=== PATIENT | female | born 1970 | race Caucasian/White ===

== ENCOUNTER 2018-01-13 07:13 | Day surgery (SDC) | payer OTHER ==
--- NOTE | 2018-01-08 15:32 | HP ---
HISTORY OF PRESENT ILLNESS: Patient is a 47-year-old female with an umbilical hernia. This causes h er pain in the umbilical area. She was referred to [facility] for a CAT scan as efforts to obtain this at Hospital were just too expensive. Her CAT scan of abdomen and pelvis was unremarkable except for a fat containing umbilical hernia. Plan is for robotic mesh repair of umbilical hernia a s an outpatient. MEDICATIONS: 1. Barbra. 2. Levothyroxine. 3. Wellbutrin. PAST MEDICAL HISTORY: Ovarian cystic . PAST SURGICAL HISTORY: LEEP procedure in 2005. FAMILY HISTORY: Father , diagnosed with hypertension, heart disease, stroke. Mother alive, diagnosed with hypertension and cancer. TOBACCO: None. ALCOHOL: None. REVIEW OF SYSTEMS: Ten point noncontributory. PHYSICAL EXAMINATION: VITAL SIGNS: 167 pounds, 134/87, 71 heart rate, 97.3 degrees. HEENT: Unremarkable. LUNGS: Clear to auscultation. CARDIAC: Regular rate and rhythm without murmur or gallop. ABDOMEN: Soft, nontender. Umbilical hernia, tender on palpation about 1.5 to 2 cm defect. EXTREMITIES: Unremarkable. ASSESSMENT AND PLAN: Reducible umbilical hernia that is painful. Recommend robotic repair using mes h outpatient. She understands risks and benefits and consents.
[2018-01-12 12:39] VITALS: BMI 26.6
[2018-01-13 07:53] LABS: #Basophils 0.1 thou/uL (0.0-0.2); #Eosinphils 0.1 thou/uL (0.0-0.7); #Lymphocytes 1.8 thou/uL (1.20-3.40); #Monocytes 0.5 thou/uL (0.11-0.59); #Neutrophils 3.6 thou/uL (1.40-6.50); %Basophils 0.9 % (0.0-1.0); %Eosinophils 1.6 % (0.0-10.0); %Lymphocytes 29.5 % (21.0-51.0); %Monocytes 8.3 % (0.0-10.0); %Neutrophils 59.7 % (42.0-75.0); BHCG - Serum Negative (NEGATIVE); Hemoglobin 13.8 g/dL (12.0-16.0); Mean Corpuscular Hemoglobin 30.2 pg (27.0-31.0); Mean Corpuscular Volume 91.5 fL (78.0-98.0); Platelet Count 252 thou/uL (130-400); Pregs Control Background? CLEAR/WHITE (CLR/WHITE); Pregs Control Bar Appear? YES (CONTROL BAR); RBC Distribution Width 11.5 % (11.5-14.5); Red Blood Cell (RBC) Count 4.57 mill/uL (4.20-5.40)
[2018-01-13] MEDS ORDERED: Ketorolac Tromethamine 30 MG/ML VIAL ONE (07:56)
[2018-01-13] MEDS ORDERED: CEFAZOLIN 2 GM/50 ML BAG ONE (07:56)
[2018-01-13 08:08] LABS: Anion Gap 13 mmol/L (10-20); BUN (Urea Nitrogen) 16 mg/dL (7.0-18.7); Calc. Creatinine Clearance 78 mL/min (70-130); Calcium 9.4 mg/dL (7.8-10.44); Carbon Dioxide 21 mmol/L (22-29); Chloride 107 mmol/L (98-107); Estimated GFR-MDRD 58; Glucose 98 mg/dL (70-105); Potassium 4.3 mmol/L (3.5-5.1); Sodium 137 mmol/L (136-145)
[2018-01-13] MEDS ORDERED: Bupivacaine/Epinephrine 0.25% 30 ML VIAL ONE (08:34)
[2018-01-13] MEDS ORDERED: Fentanyl 100 MCG/2 ML VIAL ONE ×3 (10:09→12:52)
[2018-01-13] MEDS ORDERED: Midazolam HCl 2 mg/2 ml Vial ONE (10:09)
--- NOTE | 2018-01-13 12:18 | OP ---
DATE OF PROCEDURE: 01/13/2018 PREOPERATIVE DIAGNOSIS: Umbilical hernia, painful. POSTOPERATIVE DIAGNOSIS: Umbilical hernia, painful. PROCEDURE: Eight centimeter Ventralight mesh reinforcement of fascial closure, umbilical hernia defe cts, robotic. SURGEON: Dr. Joselito Madera ANESTHESIA: General. Local 0.5% Marcaine with epinephrine 30 mL. PROCEDURE IN DETAIL: The patient was taken to the operating room where under general anesthesia, abd omen was prepared with ChloraPrep, draped in routine fashion. Phillips catheter placed at the beginning of the procedure and removed at the end. The defect identified. Preperitoneal fat dissected free. Small fascial defect closed with 0 V-Loc suture, continuous. Once this was closed, the mesh was rand lied and secured with circumferential suture of 2-0 V-Loc suture. Pneumoperitoneum had been reduced to 8 mmHg. Once this was completed, all needles were removed. Mesh fixation was noted be intact. P neumoperitoneum reduced. All instruments removed and all skin incisions approximated with 4-0 Monocr yl subdermal .
[2018-01-13] MEDS ORDERED: Meperidine HCl/PF 25 MG/ML VIAL ONE (12:21)
[2018-01-13] MEDS ORDERED: PROPOFOL 200 MG/20 ML VIAL ONE (17:09)
[2018-01-13] MEDS ORDERED: Glycopyrrolate 0.2 MG/ML 5 ML SYRINGE ONE (17:09)
[2018-01-13] MEDS ORDERED: Ondansetron PF 4 MG/2 ML Vial ONE (17:09)
[2018-01-13] MEDS ORDERED: Succinylcholine Chloride 20 MG/ML 10 ml SYRINGE FS ONE (17:09)
[2018-01-13] MEDS ORDERED: Neosporin Ophth Soln 10 ml Bottle ONE (17:09)
[2018-01-13] MEDS ORDERED: Vecuronium 10 MG VIAL ONE (17:09)
[2018-01-13] MEDS ORDERED: ePHEDrine/0.9% NaCl/PF SYRINGE 50 mg/10 ml ONE (17:09)
[2018-01-13] MEDS ORDERED: Lidocaine 1% PF 5 ML VIAL ONE (17:09)
--- NOTE | 2018-01-16 10:28 | EKG ---
Test Reason : PREOP Blood Pressure : / mmHG Vent. Rate : 065 BPM Atrial Rate : 065 BPM P-R Int : 142 ms QRS Dur : 082 ms QT Int : 400 ms P-R-T Axes : 061 071 059 degrees QTc Int : 416 ms Normal sinus rhythm Normal ECG No previous ECGs available Confirmed by DR. James BENITES ([id number]) on 01/16/2018 10:27:53 AM Referred By: LUNA Confirmed By:DR. James BENITES
== END 2018-01-13 14:15 | disposition home or self-care (01) ==
LOC: SDC 07:13
PROVIDERS: ATTEND Specialist
PROC: 0WUF4JZ Supplement Abdominal Wall with Synthetic Substitute, Percutaneous Endoscopic Approach (ICD-10-PCS; principal; 2018-01-13)
DX: K42.9 Umbilical hernia without obstruction or gangrene (principal); Z79.899 Other long term (current) drug therapy
CPT/HCPCS: 80048; 84703; 85025; 93005; 93010; 96374; 96375; 96376; C1781; J0131; J1885; J2001; J2175; J2250; J2405; J2704; J3010